=== PATIENT | female | born 1950 | race Asian ===

== ENCOUNTER 2022-12-26 06:32 | Day surgery (SDC) | payer MEDICARE ==
[~2022-12-26 06:32] MED LIST: LACTATED RINGERS 1,000 ML IV SCH; LIDOCAINE 1% (10MG/ML) FOR IV START INTRADERMA PRN
[2022-12-26 06:58] VITALS: TEMP 97
[2022-12-26] MEDS ORDERED: ONDANSETRON 4 MG/2 ML VIAL IVP PRN (07:00)
[2022-12-26 07:05] LABS: Glucose,Whole Blood 93 mg/dL (70-110)
[2022-12-26] MEDS ORDERED: LIDOCAINE 2% INJ 20 MG/ML (2 ML VIAL) ONE (07:31)
[2022-12-26] MEDS ORDERED: PROPOFOL 10 MG/ML 20 ML VIAL IV ONE (07:31)
--- NOTE | 2022-12-26 08:07 | P.PCN ---
Date of Procedure: 12/26/22 Procedure(s) Performed: BRIEF HISTORY: Patient is a 72-year-old pleasant female scheduled for an elective colonoscopy as a part of evaluation of chronic diarrhea for the last 2 months duration. She is having bowel movements anywhere from 4 a day which are loose to watery in consistency which happens intermittently. PROCEDURE PERFORMED: Colonoscopy with biopsy and snare polypectomy. PREOPERATIVE DIAGNOSIS: Chronic intermittent diarrhea. IV sedation per Anesthesia. PROCEDURE: After informed consent was obtained, the patient, was brought into the endoscopy unit. IV sedation was administered by Anesthesia under continuous monitoring. Digital rectal examination was normal. Initially the Olympus CF-160 flexible video colonoscope was then inserted in the rectum, gradually advanced into the cecum without any difficulty. Careful examination was performed as the scope was gradually being withdrawn. Ileocecal valve and the appendiceal orifice were visualized and appeared normal. Prep was excellent. Mucosa of the cecum, ascending colon, transverse colon, descending colon, sigmoid colon, and rectum appeared normal. Random biopsies were done from ascending and ascending colon to rule out microscopic/collagenous colitis. Retroflexion was performed in the rectum and 2.5 cm tic but antedated polyp was located just proximal to the dentate line which was removed by piecemeal snare polypectomy and complete polypectomy was accomplished.. The patient tolerated the procedure well. IMPRESSION: 2.5-3 cm thick pedunculated polyp in the distal rectum just proximal to the dentate line status post piecemeal snare polyp rectum he can be polypectomy accomplished Rest of the colon appeared normal Scattered sigmoid diverticulosis RECOMMENDATIONS: Findings of this examination were discussed with the patient as well as a family. She was advised to follow with the biopsy results. She'll be seen in office in 2 weeks. Reason the biopsy results will plan a repeat colonoscopy in 3 years..
[2022-12-26 08:15] LABS: Glucose,Whole Blood 92 mg/dL (70-110)
[2022-12-26 08:29] VITALS: BP 118/67; PULSE 62; RESP 16
== END 2022-12-26 08:48 | disposition home or self-care (01) ==
LOC: ORWHC2ENDO 06:32
PROVIDERS: ATTEND Internal Medicine Gastroenterology
DX: D12.8 Benign neoplasm of rectum (principal); K57.30 Diverticulosis of large intestine without perforation or abscess without bleeding
CPT/HCPCS: 45380; 45385; J2704; J2001; 88305